=== PATIENT | male | born 1970 | race Caucasian/White ===

== ENCOUNTER 2019-04-30 15:42 | Inpatient (IN) | payer MEDICAID ==
[~2019-04-30] VITALS: Ht 165.1 cm; Wt 100.2 kg
[2019-04-30 16:32] LABS: BASOPHILS % 0.9 % (0.0-2.0); EOSINOPHILS % 0.5 % (0.0-5.0); HEMATOCRIT. 48.6 % (42.0-52.0); HEMOGLOBIN. 16.9 g/dL (14.0-18.0); LYMPHOCYTES % 21.4 % (20.0-50.0); MEAN CORPUSCULAR HEMOGLOBIN 34.7 pg (28.0-32.0); MEAN CORPUSCULAR VOLUME 99.5 fL (80.0-94.0); MEAN PLATELET VOLUME 8.4 fl (7.4-10.4); NEUTROPHILS % 63.2 % (40.0-76.0); PLATELET 158 x1000/uL (130-400); RED BLOOD CELL COUNT 4.88 mill/uL (4.7-6.1); RED CELL DISTRIBUTION WIDTH 13.7 % (11.6-14.6)
[2019-04-30 16:36] LABS: CHLORIDE 112 mEq/L (98-107)
[2019-04-30 16:40] LABS: INR 1.1; PARTIAL THROMBOPLASTIN TIME 27.1 sec (23.4-31.0); PROTHROMBIN TIME 11.8 sec (9.6-11.0)
[2019-04-30 16:42] LABS: ETHANOL BLOOD < 10 mg/dL
[2019-04-30 16:47] LABS: T4 FREE 0.91 ng/dL (0.76-1.46)
[2019-04-30 17:10] LABS: *BARBITURATES SCREEN URINE NEGATIVE (NEGATIVE)
[2019-04-30 17:11] LABS: *AMPHETAMINES SCREEN URINE NEGATIVE (NEGATIVE); *BENZODIAZEPINES SCREEN URINE NEGATIVE (NEGATIVE); *COCAINE SCREEN URINE NEGATIVE (NEGATIVE); CANNABINOID URINE SCREEN NEGATIVE (NEGATIVE); METHADONE URINE SCREEN NEGATIVE (NEGATIVE); OPIATES URINE SCREEN NEGATIVE (NEGATIVE); PHENCYCLIDINE URINE SCREEN NEGATIVE (NEGATIVE)
[2019-04-30] MEDS ORDERED: ACETAMINOPHEN 325MG TABLET PO PRN (17:15)
[2019-04-30] MEDS ORDERED: ONDANSETRON HCL 4MG/2ML INJ IV PRN (17:15)
[2019-04-30] MEDS: METOPROLOL TARTRATE 25MG TABLET PO SCH (18:43)
[2019-04-30 21:56] VITALS: BP 135/81
[2019-04-30 22:00] VITALS: BP 120/73
[2019-04-30] MEDS ORDERED: METF-414 MT (22:24)
[2019-04-30] MEDS ORDERED: ASPI-1158 MT (22:26)
[2019-04-30] MEDS: ENOXAPARIN 30MG/0.3ML SYR SUBCUT SCH (23:26)
[2019-05-01] VITALS (12 sets, daily range): BP systolic 88–152; BP diastolic 51–96
[2019-05-01] MEDS ORDERED: DEXTROSE 50% WATER 50ML SYRINGE IV PRN
[2019-05-01] MEDS ORDERED: BLOOD SUGAR DIAGNOSTIC STRIP TEST SCH (06:50)
[2019-05-01 06:59] LABS: HEMATOCRIT. 45.5 % (42.0-52.0); HEMOGLOBIN. 15.8 g/dL (14.0-18.0); MEAN CORPUSCULAR HEMOGLOBIN 34.5 pg (28.0-32.0); MEAN CORPUSCULAR VOLUME 99.7 fL (80.0-94.0); MEAN PLATELET VOLUME 8.8 fl (7.4-10.4); PLATELET 113 x1000/uL (130-400); RED BLOOD CELL COUNT 4.56 mill/uL (4.7-6.1); RED CELL DISTRIBUTION WIDTH 13.6 % (11.6-14.6)
[2019-05-01 07:04] LABS: CHLORIDE 111 mEq/L (98-107)
[2019-05-01] MEDS: ENOXAPARIN 30MG/0.3ML SYR SUBCUT SCH ×2 (08:16→21:18)
[2019-05-01] MEDS: METOPROLOL TARTRATE 25MG TABLET PO SCH (08:21)
[2019-05-01] MEDS ORDERED: DIGOXIN 250MCG TABLET PO NR (10:45)
[2019-05-01 11:05] LABS: PLATELET ESTIMATE DECREASED
[2019-05-01] MEDS: DILTIAZEM HCL 30MG TABLET PO SCH ×2 (13:08→21:18)
[2019-05-01] MEDS ORDERED: POTASSIUM CHLORIDE 20MEQ TABLET SR PO NR (13:15)
[2019-05-02] VITALS (8 sets, daily range): BP systolic 106–139; BP diastolic 58–100
[2019-05-02] MEDS: DILTIAZEM HCL 30MG TABLET PO SCH (06:30)
[2019-05-02 07:20] LABS: BASOPHILS % 0.3 % (0.0-2.0); EOSINOPHILS % 0.5 % (0.0-5.0); HEMOGLOBIN. 15.8 g/dL (14.0-18.0); LYMPHOCYTES % 26.5 % (20.0-50.0); MEAN CORPUSCULAR HEMOGLOBIN 34.3 pg (28.0-32.0); MEAN PLATELET VOLUME 9.1 fl (7.4-10.4); MONOCYTES % 13.8 % (2.0-8.0); NEUTROPHILS % 58.9 % (40.0-76.0); PLATELET 108 x1000/uL (130-400); RED CELL DISTRIBUTION WIDTH 13.9 % (11.6-14.6)
[2019-05-02 07:45] LABS: CHLORIDE 109 mEq/L (98-107)
[2019-05-02] MEDS: ENOXAPARIN 30MG/0.3ML SYR SUBCUT SCH (09:00)
== END 2019-05-02 16:32 | disposition home or self-care (01) | DRG 201 ==
LOC: ER 15:42 → EDBEDREQSVC 16:46 → EDBEDREQ 16:46 → 3WST 17:06 → EDBEDREQTM 17:41 → EDBEDREQ 17:41 → ENRESERV 20:13
PROVIDERS: ADMIT Internal Medicine; ATTEND Internal Medicine
DX: I47.1 Supraventricular tachycardia (principal); E87.8 Other disorders of electrolyte and fluid balance, not elsewhere classified; I10 Essential (primary) hypertension; E11.9 Type 2 diabetes mellitus without complications; E66.9 Obesity, unspecified; F10.10 Alcohol abuse, uncomplicated; F17.210 Nicotine dependence, cigarettes, uncomplicated; Z71.3 Dietary counseling and surveillance; Z71.6 Tobacco abuse counseling; Z79.82 Long term (current) use of aspirin; Z79.84 Long term (current) use of oral hypoglycemic drugs; Z68.36 Body mass index [BMI] 36.0-36.9, adult
CPT/HCPCS: 36415; 71045; 80048; 80061; 80305; 80320; 82962; 83036; 83735; 83880; 84439; 84443; 84484; 93005; 99291; J1650; G0480